=== PATIENT | male | born 1970 | race Caucasian/White ===

== ENCOUNTER 2023-10-01 09:10 | Emergency (ER) | payer OTHER ==
[2023-10-01 09:18] VITALS: BP 115/82; PULSE 80; RESP 18; TEMP 98.7; BMI 32.5
== END 2023-10-01 10:38 | disposition home or self-care (01) ==
LOC: JERFT 09:10
DX: Z29.81 Encounter for HIV pre-exposure prophylaxis (principal)
CPT/HCPCS: 99283-25